=== PATIENT | male | born 1960 | race African-American/Black ===

== ENCOUNTER 2017-07-04 15:00 | Inpatient (IN) | payer OTHER ==
[~2017-07-04] VITALS: Ht 172.7 cm; Wt 63.5 kg
--- NOTE | ~2017-07-04 | DS ---
Unit #: [id number] #: [id number] Patient: FAUSTINO UMANZOR [id number] [facility] [address] [place] [address] [id number] MR#: [id number] NAME: FAUSTINO UMANZOR. ROOM: P113 Age: 56 Sex: M Admission Date: 07/04/2017 : 1960 Discharge Date: 07/09/2017 Attending Physician: Valerio Ortiz M.D. Primary Care Physician: Primary Care Physician No DISCHARGE SUMMARY REASON FOR ADMISSION Mr. Umanzor is a 56-year-old man with a history of depression, who also relapsed into some cocaine use. He had suicidal ideation and heard auditory hallucinations telling him to kill himself by drinking himself to or driving off a bridge. He was unable to contract for safety and was admitted for stabilization. DIAGNOSTIC STUDIES LABORATORY RESULTS: Urine drug screen was positive for cocaine and marijuana. HOSPITAL COURSE The patient was admitted and placed on suicide precautions. Celexa 20 mg daily for depression and Zyprexa 5 mg and mood stability were initiated and were well tolerated. The patient participated appropriately in unit groups and activities, although he did have some difficulty sleeping, and Remeron 15 mg at bedtime was added. The patient was also placed on Trimox 500 mg b.i.d. for an infection discovered during his physical assessment. On the date of discharge, he was able to contract for safety with no further suicidal ideation, intent, or plan and had obtained placement in a [facility] in [facility]. DISCHARGE DIAGNOSES AXIS I: Major depressive disorder, recurrent and cocaine abuse. AXIS II: No diagnosis. AXIS III: Recent infection. AXIS IV: AXIS V: DISCHARGE INSTRUCTIONS The patient is to follow up with the [facility] in [place], [place]. DISCHARGE MEDICATIONS Celexa 20 mg daily for depression, Zyprexa 5 mg at bedtime for mood stability, Remeron 15 mg at bedtime for insomnia, and Trimox 500 mg b.i.d. for 5 days until gone for antibiotic affect. CONDITION AT DISCHARGE Improved. PROGNOSIS Unit #: [id number] #: [id number] Patient: FAUSTINO UMANZOR Fair to good. DIET AND ACTIVITY Ad jennifer. Dictated by... Jaylyn Smith/nasreen TD: 07/11/2017 09:24 JOB #: [id number] DISCHARGE SUMMARY Page 1 of 1 X Valerio Ortiz MD DISCHARGE SUMMARY
--- NOTE | ~2017-07-04 | A ---
[facility] Nutrition Therapy DATE: 07/06/17 Patient: FAUSTINO ROBERTSON Physician: HARMIC Address: [address] [place] [address] Room/Bed: P113-2 [facility], Zip: [place] [address] Admit Date: 07/04/17 Date of : [birth year] Height: 5 8 Weight: 139 63.54664 NUTRITIONAL ASSESSMENT: REASON: 2 NUTRITIONAL RISK POINTS: UNINTENTIONAL WEIGHT LOSS, CHEWING/SWALLOWING DIFFICULTIES PATIENT ADMITTED FOR DETOX, PARANOIA, AND AUDITORY HALLUCINATIONS PMH: LNG HX SUBSTANCE ABUSE, HX PUD Anthropometrics: HT: 68", WT: 140#, BMI: 21.3 Labs: 07/05/17- NUTRITIONAL LABS WNL Meds: REMERON, ZYPREXA, CELEXA, AMOXICILLIN Assessment: PATIENT IS A 56 Y/O MALE ADMITTED FOR DETOX AND PARANOIA. PATIENT IS CURRENTLY ON DISABILITY, HOMELESS, HAS DAILY ETOH AND COCAINE ABUSE, AND HIS TOX SCREEN WAS POSITIVE FOR MARIJUANA.IT IS NOTED THAT PATIENT HAS BEEN NON-COMPLIANT WITH HIS MEDICATIONS FOR THE LAST 2 WEEKS AND HE IS CURRENTLY ON A 72 HOUR HOLD. UPON ADMIT PATIENT STATED A POOR APPETITE WITH NO RECENT WEIGHT CHANGES, AND HE HAS ONLY BEEN SLEEPING 5HRS/NIGHT. WEIGHT HX PER [employer] SHOWS STABLE WEIGHTS X 1 YEAR WITH FLUCTUATIONS BETWEEN 138-155#. NURSING REPORTS GOOD PO INTAKES. PATIENT IS ON A REGULAR DIET WITH LARGE PORTION ENTREES AND ENSURE TID. THERE ARE NO C/O CHEWING OR SWALLOWING DIFFICULTIES ATT. PATIENT'S NUTRITIONAL LABS WERE ALL WNL AND HIS BMI IS WITHIN A HEALTHY RANGE Dx: NO NUTRITION DX Intervention: REGULAR DIET, LARGE ENTREES, ENSURE TID, MEDS PER MD, DETOX, PSYCH Monitoring, Evaluation and Goals: 1. ADEQUATE PO INTAKES >50% OF MEALS 2. PREVENT, CORRECT MICRO/MACRO NUTRIENT DEFICIENCIES MONITOR: WEIGHTS, LABS, PO/FLUID INTAKES Recommendations: 1. CONTINUE REGULAR DIET WITH LARGE PORTION ENTREES TOLERATED. RECOMMEND TO D/C ENSURE TID D/T NO NUTRITION INDICATION FOR AN EXCESSIVE AMOUNT OF KCALS 2. ENCOURAGE ADEQUATE! PO AND FLUID INTAKES 3. WEIGH PATIENT ROUTINELY (EVERY 3-4 DAYS) [facility] Nutrition Therapy DATE: 07/06/17 Patient: FAUSTINO ROBERTSON Physician: HARMIC Address: [address] [place] [address] Room/Bed: P113-2 [facility], [facility], Zip: [place] [address] Admit Date: 07/04/17 Date of : [birth year] Height: 5 8 Weight: [address] TO F/U PER PROTOCOL AND PRN R/T PATIENT NOT AT NUTRITIONAL RISK ATT Respectfully, DEREJE CALZADA, JONNY, LD [employer] [facility] cc: client file
--- NOTE | ~2017-07-04 | HP ---
Unit #: [id number] #: [id number] Patient: FAUSTINO ROBERTSON [id number] [place] [address] [id number] MR#: [id number] NAME: FAUSTINO ROBERTSON. ROOM: P113 Age: 56 Sex: M Admission Date: 07/04/2017 : 1960 Attending Physician: Valerio Ortiz M.D. Admitting Physician: Valerio Ortiz M.D. Primary Care Physician: Primary Care Physician No HISTORY AND PHYSICAL HISTORY OF PRESENT ILLNESS Faustino is a 56 year old admitted to [address] [place] [address] because of his continued abuse of alcohol and crack cocaine. PAST MEDICAL HISTORY 1. Long history of polysubstance abuse to include crack cocaine. 2. History of alcohol abuse. 3. History of peptic ulcer disease. a. Gastric surgery. PAST SURGICAL HISTORY 1. As above. 2. Oral. ALLERGIES No known drug allergies. SOCIAL HISTORY Smokes one pack per day. Has a history of alcohol abuse but denies anything currently. Admits to regular use of crack cocaine. REVIEW OF SYSTEMS CONSTITUTIONAL: No fever or chills. HEENT: Denies any sore throat, ear pain or runny nose. CARDIOVASCULAR: Denies chest pain, irregular heart rhythm or palpitations. CHEST: Denies shortness of breath or cough. No hemoptysis. GASTROINTESTINAL: Denies nausea, vomiting, diarrhea or chronic constipation. ENDOCRINE: Denies history of increased thirst or urination. No recent significant weight loss or gain. GENITOURINARY: Denies dysuria, frequency, or hematuria. SKIN: Denies any rashes. HEMATOLOGIC: Denies history of increased bleeding or bruising. MUSCULOSKELETAL: Denies any hot, swollen joints. No generalized muscle pain. NEUROLOGIC: Denies problems with vision or speech. No frequent, severe headaches. No numbness, tingling or weakness in any extremities. Denies loss of bladder or bowel control. CURRENT MEDICATIONS 1. Desyrel 50 mg q.h.s. 2. Zyprexa 5 mg q.h.s. Unit #: [id number] #: [id number] Patient: FAUSTINO ROBERTSON 3. Milk of Magnesia p.r.n. 4. Maalox p.r.n. 5. Tylenol p.r.n. 6. Celexa 20 mg q day PHYSICAL EXAMINATION GENERAL: Alert, well-nourished, in no apparent distress. VITAL SIGNS: Blood pressure 110/70, heart rate 80, respirations 16, temperature 98.6. WEIGHT: 140. HEIGHT: 5 foot 8 inches. SKIN: Warm and dry without rash or lesion. HEENT: Normocephalic. TMs not viewed. Oral and nasal passages clear. Conjunctivae clear. Pupils equal, round and reactive to light and accommodation. Extraocular movements intact. NECK: Supple without lymphadenopathy or thyromegaly. HEART: Regular rate and rhythm without murmur. LUNGS: Clear. ABDOMEN: Soft, nontender. : Not done. EXTREMITIES: No evidence of cyanosis, clubbing or edema. Moves all extremities without focal deficit. NEUROLOGICAL: Grossly within normal limits. Cranial Nerves: II: Visual toscano are intact. III, IV AND : Extraocular movements are intact. Pupils are equal, round and reactive to light. V: Facial sensation is grossly normal. VII: Facial movements and expression are normal. VIII: Auditory acuity grossly intact. IX, X: Uvula is midline. Phonation is normal. XI: Patient shrugs shoulders and turns head normally. XII: Tongue protrudes in the midline. Sensory and Motor Function: Sensory and motor sensation is grossly normal. Motor: moves all extremities well. Coordination: Gait is normal. Deep Tendon Reflexes: Intact. IMPRESSION Psychiatric admission. RECOMMENDATIONS PSYCHIATRIC: Per psychiatrist. MEDICAL: I see no contraindications to participating in facility's activities. MEDICAL PROGNOSIS Good. MEDICAL CONDITION Stable. Dictated by... Sania Castrejon P.A.-C. for Jaylyn Moraes/nisreen Unit #: [id number] #: [id number] Patient: FAUSTINO ROBERTSON TD: 07/05/2017 20:45 JOB #: [id number] HISTORY AND PHYSICAL Page 1 of 1 X Sania Castrejon X HISTORY AND PHYSICAL
--- NOTE | ~2017-07-04 | PN ---
Unit #: [id number] #: [id number] Patient: FAUSTINO ROBERTSON [id number] [facility] [address] [place] [address] [id number] I MR#: [id number] NAME: FAUSTINO ROBERTSON. ROOM: P113 Age: 56 Sex: M Admission Date: 07/04/2017 : 1960 Attending Physician: Valerio Ortiz M.D. Admitting Physician: Valerio Ortiz M.D. Primary Care Physician: Primary Care Physician Rekha PÉREZ PROGRESS NOTES DATE 07/07/2017 DISCUSSION Faustino continues to show improvement today. His mood is less depressed with a brighter range of affect. He is alert and fully oriented with no psychosis. He does continue to ruminate on suicidal ideation. ASSESSMENT 1. Major depression. 2. Cocaine abuse. PLAN Continue current treatment plan. Dictated by... Valerio Ortiz M.D. [facility]/yash TD: 07/11/2017 22:24 JOB #: [id number] [facility] PROGRESS NOTES Page 1 of 1 X Valerio Ortiz MD PROGRESS NOTE
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
[2017-07-05 10:02] LABS: URINE APPEARANCE CLEAR; URINE BILIRUBIN NEG (NEG); URINE BLOOD NEG (NEG); URINE COLOR YELLOW; URINE GLUCOSE NEG (NEG); URINE KETONE NEG (NEG); URINE LEUKOCYTE ESTERASE 3+ (NEG); URINE NITRATE NEG (NEG); URINE PH 7.5 (5-8); URINE PROTEIN NEG (NEG); URINE SPECIFIC GRAVITY 1.008 (1.003-1.035); URINE UROBILINOGEN 0.2 MG/DL (NEG)
[2017-07-05 10:05] LABS: URBCS1 AUWI 0-2 /[HPF] (0-2); URINE BACTERIA AUWI NEG (NEGATIVE); URINE SQUAMOUS EPITHELIAL CELL OCC /[HPF]
[2017-07-05 10:34] LABS: AMPHETAMINE NEG (NEG); BARBITURATES NEG (NEG); BENZODIAZEPINES NEG (NEG); COCAINE POS (NEG); MARIJUANA POS (NEG); OPIATES NEG (NEG); TRICYCLIC ANTIDEPRESSANTS NEG (NEG); U METHADONE NEG (NEG)
[2017-07-05 12:33] LABS: BASOPHIL# 0.1 X10e3 (0-0.3); BASOPHIL% 0.7 % (0-2.5); EOSINOPHIL# 0.1 X10e3 (0-0.7); EOSINOPHIL% 1.9 % (0.0-7.0); HEMATOCRIT 36.8 % (38.0-50.0); HEMOGLOBIN 11.9 gm/dL (13.0-16.0); LYMPHOCYTE# 1.4 X10e3 (1.0-3.5); LYMPHOCYTE% 18.6 % (17.0-45.0); MEAN CELL VOLUME 91.3 FL (83-96); MEAN CORPUSCULAR HEMOGLOBIN 29.4 PG (28-34); MEAN CORPUSCULAR HGB CONC 32.2 g/dL (30-36); MEAN PLATELET VOLUME 8.3 FL (6.5-11.5); MONOCYTE# 0.4 X10e3 (0-1.0); MONOCYTE% 5.7 % (3.0-12.0); NEUTROPHIL# 5.5 X10e3 (1.5-7.1); NEUTROPHIL% 73.1 % (40-75); PLATELET COUNT 262 X10e3 (140-420); RED BLOOD COUNT 4.03 X10e (3.90-5.60); RED CELL DISTRIBUTION WIDTH 14.7 % (11.0-15.5); WHITE BLOOD COUNT 7.5 X10e3 (4.0-10.5)
[2017-07-05 12:40] LABS: DIFF IND NO
[2017-07-05 12:52] LABS: ALBUMIN SERUM 3.7 g/dL (3.5-5.0); BILIRUBIN,TOTAL 0.3 mg/dL (0.2-2.0); BUN/CREATININE RATIO 11.81; CALCIUM SERUM 9.3 mg/dL (8.4-10.2); CREATININE SERUM 1.1 mg/dL (0.6-1.4); GLOM FILT RATE Estimated 87.8 mL/min (>60); POTASSIUM 4.6 mmol/L (3.5-5.1); PROTEIN TOTAL SERUM 6.6 g/dL (6.0-8.3)
== END 2017-07-09 11:45 | disposition home or self-care (01) | DRG 885 ==
LOC: P1S 19:00
PROVIDERS: Psychiatry & Neurology Psychiatry
DX: F33.9 Major depressive disorder, recurrent, unspecified (principal); R45.851 Suicidal ideations; F14.10 Cocaine abuse, uncomplicated; Z81.3 Family history of other psychoactive substance abuse and dependence; Z81.8 Family history of other mental and behavioral disorders; Z62.810 Personal history of physical and sexual abuse in childhood; F10.10 Alcohol abuse, uncomplicated; F17.200 Nicotine dependence, unspecified, uncomplicated
CPT/HCPCS: 80053; 80307; 81003; 85025